=== PATIENT | male | born 1975 | race Caucasian/White ===

== ENCOUNTER 2018-03-14 16:26 | Emergency (ER) | payer BC ==
[~2018-03-14 16:26] MED LIST: ALP5 PO; AZIT-1 PO; BUPXL150 PO; CELE-1 PO; CODE118S5 PO; DIAZ-308 PO; HYDR-653 PO; IBU600; KET10 PO; LOR5 PO; LOR5/325 PO; NO ROUTINE MEDS; OMEP-218 PO; OSE75 PO; OXYC-865 PO; PAN40 PO; PER PO; PRE20 PO; QUET100T29 PO; TRAZ50 PO
--- NOTE | 2018-03-14 16:35 | ER Report ---
History and Physical Time Seen By MD: 16:35 Hx. of Stated Complaint: PATIENT REPORTS LEFT ARM PAIN FOR THE LAST 3 WEEKS. TODAY HE BECAME NAUSEATED AND DECIDED TO COME TO THE EMERGENCY DEPARTMENT FOR EVALUATION HPI/ROS CHIEF COMPLAINT: Left shoulder pain, numbness to left arm, coolness to left hand HISTORY OF PRESENT ILLNESS: 42-year-old male patient presents to emergency room with complaint of left shoulder pain, numbness left arm, coolness to the left hand. Patient states that he has been dealing with this for the past 2 months. Patient states she's noticed that when he is driving that his headache arm will falsely, he states he's noticed pains that shoot up the arm into the chest and also from the chest down the arm. He states this has become more more frequent. He states that there is mild time where he doesn't have discomfort in the left arm. He states he's also noticed that his left hand is cooler than his right. Patient has not taken any medication for this. He denies any injury to the arm. Patient states that oftentimes happen when his arm is raised, especially driving, but will also have other times. Patient states that he notices it when he sleeps. Patient has not seen a healthcare provider for this. REVIEW OF SYSTEMS: Respiratory: No cough, no dyspnea. Cardiovascular: No chest pain, no palpitations. Gastrointestinal: No vomiting, no abdominal pain. Musculoskeletal: As noted above Allergies: Coded Allergies: tramadol (Verified Allergy, Intermediate, RASH , 03/24/16) Penicillins (Verified Allergy, Mild, RASH HIVES, 01/30/17) amoxicillin (Verified Allergy, Mild, RASH, 08/29/14) Home Meds Discontinued Scripts Hydrocodone Bit/Acetaminophen (NORCO 5-325 TABLET) 1 Each Tablet, 1-2 EACH PO Q4H PRN for PAIN, #30 TAB Prov:FORTINO PINA MD 02/03/17 Ketorolac Tromethamine (KETOROLAC TROMETHAMINE) 10 Mg Tab, 10 MG PO Q6H, #20 TAB Prov:FORTINO PINA MD 02/03/17 Past Medical/Surgical History Patient has a past medical history of cranial surgery, cellulitis on his skull, ruptured ulcer, hernia repair, tib-fib fracture, broken jaw, alcohol use. Patient has surgical history of a tib-fib repair, surgery for his ruptured ulcer, surgery for cellulitis. Patient has a family medical history of cancer. Reviewed Nurses Notes: Yes Hx Smoking: No Smoking Status: Former Smoker Hx Substance Use Disorder: No Hx Alcohol Use: Yes Constitutional Vital Sign - Last 24 Hours 03/14/18 03/14/18 03/14/18 03/14/18 16:29 16:32 16:37 16:56 Temp 97.4 Pulse 71 66 Resp 20 B/P (MAP) 141/97 141/97 (112) 138/94 (109) Pulse Ox 95 93 03/14/18 03/14/18 03/14/18 03/14/18 17:26 17:56 18:01 18:06 Pulse 70 69 66 66 Pulse Ox 94 95 95 95 03/14/18 03/14/18 03/14/18 03/14/18 18:11 18:15 18:16 18:21 Pulse 67 60 59 B/P (MAP) 125/94 (104) Pulse Ox 97 96 93 03/14/18 03/14/18 03/14/18 03/14/18 18:36 18:51 18:56 19:12 Pulse 73 62 67 B/P (MAP) 127/89 (102) Pulse Ox 93 94 95 Physical Exam General Appearance: The patient is alert, has no immediate need for airway protection and no current signs of toxicity. Respiratory: Chest is non tender, lungs are clear to auscultation. Cardiac: regular rate and rhythm. Radial pulses are equal bilaterally, left hand does feel slightly cooler than the right. Gastrointestinal: Abdomen is soft and non tender, no masses, bowel sounds normal. Musculoskeletal: Neck: Neck is supple and non tender. Extremities have full range of motion and are non tender. Skin: No rashes or lesions. DIFFERENTIAL DIAGNOSIS: After history and physical exam differential diagnosis was considered for thoracic outlet syndrome, pinched nerve, DVT. Medical Decision Making Data Points Result Diagram: 03/14/18 1651 03/14/18 1651 Laboratory Hematology Test 03/14/18 16:51 Red Blood Count 5.53 M/uL (4.00-5.60) Mean Corpuscular Volume 89.9 fL (80.0-96.0) Mean Corpuscular Hemoglobin 31.5 pg (26.0-33.0) Mean Corpuscular Hemoglobin Concent 35.0 g/dL (32.0-36.0) Red Cell Distribution Width 12.8 % (11.5-14.5) Mean Platelet Volume 7.5 fL (7.2-11.1) Neutrophils (%) (Auto) 63.4 % (39.4-72.5) Lymphocytes (%) (Auto) 29.5 % (17.6-49.6) Monocytes (%) (Auto) 5.7 % (4.1-12.4) Eosinophils (%) (Auto) 1.0 % (0.4-6.7) Basophils (%) (Auto) 0.4 % (0.3-1.4) Nucleated RBC Relative Count (auto) 0.0 /100WBC Neutrophils # (Auto) 6.3 K/uL (2.0-7.4) Lymphocytes # (Auto) 2.9 K/uL (1.3-3.6) Monocytes # (Auto) 0.6 K/uL (0.3-1.0) Eosinophils # (Auto) 0.1 K/uL (0.0-0.5) Basophils # (Auto) 0.0 K/uL (0.0-0.1) Nucleated RBC Absolute Count (auto) 0.00 K/uL Sodium Level 139 mmol/L (137-145) Potassium Level 3.6 mmol/L (3.5-5.0) Chloride Level 104 mmol/L (98-107) Carbon Dioxide Level 25 mmol/L (22-30) Blood Urea Nitrogen 19 mg/dl (9-21) Creatinine 1.00 mg/dl (0.66-1.25) Glomerular Filtration Rate Calc > 60.0 Random Glucose 87 mg/dl (75-110) Calcium Level 9.4 mg/dl (8.4-10.2) Total Bilirubin 0.4 mg/dl (0.2-1.3) Aspartate Amino Transf (AST/SGOT) 42 U/L (0-35) Alanine Aminotransferase (ALT/SGPT) 72 U/L (0-56) Alkaline Phosphatase 76 U/L (0-126) Troponin I < 0.012 ng/ml Total Protein 7.3 g/dl (6.3-8.2) Albumin 4.4 g/dl (3.5-5.0) Chemistry Test 03/14/18 16:51 White Blood Count 9.9 k/uL (4.5-11.0) Red Blood Count 5.53 M/uL (4.00-5.60) Hemoglobin 17.4 g/dL (14.0-18.0) Hematocrit 49.7 % (42.0-52.0) Mean Corpuscular Volume 89.9 fL (80.0-96.0) Mean Corpuscular Hemoglobin 31.5 pg (26.0-33.0) Mean Corpuscular Hemoglobin Concent 35.0 g/dL (32.0-36.0) Red Cell Distribution Width 12.8 % (11.5-14.5) Platelet Count 236 K/uL (150-450) Mean Platelet Volume 7.5 fL (7.2-11.1) Neutrophils (%) (Auto) 63.4 % (39.4-72.5) Lymphocytes (%) (Auto) 29.5 % (17.6-49.6) Monocytes (%) (Auto) 5.7 % (4.1-12.4) Eosinophils (%) (Auto) 1.0 % (0.4-6.7) Basophils (%) (Auto) 0.4 % (0.3-1.4) Nucleated RBC Relative Count (auto) 0.0 /100WBC Neutrophils # (Auto) 6.3 K/uL (2.0-7.4) Lymphocytes # (Auto) 2.9 K/uL (1.3-3.6) Monocytes # (Auto) 0.6 K/uL (0.3-1.0) Eosinophils # (Auto) 0.1 K/uL (0.0-0.5) Basophils # (Auto) 0.0 K/uL (0.0-0.1) Nucleated RBC Absolute Count (auto) 0.00 K/uL Glomerular Filtration Rate Calc > 60.0 Calcium Level 9.4 mg/dl (8.4-10.2) Total Bilirubin 0.4 mg/dl (0.2-1.3) Aspartate Amino Transf (AST/SGOT) 42 U/L (0-35) Alanine Aminotransferase (ALT/SGPT) 72 U/L (0-56) Alkaline Phosphatase 76 U/L (0-126) Troponin I < 0.012 ng/ml Total Protein 7.3 g/dl (6.3-8.2) Albumin 4.4 g/dl (3.5-5.0) EKG/Imaging EKG Interpretation 12 lead EKG: Rhythm: normal sinus rhythm with a ventricular rate of 71 bpm [place]: normal QRS: normal ST segments: normal Imaging ARTERIAL UPPER EXT LEFT HISTORY: numbness tingling, cool hand Left arterial study. The left arm was interrogated with the following parameters obtained Left subclavian artery peak systolic velocity 139 cm/s/triphasic waveform Axillary artery 81.8 cm/s peak systolic velocity/triphasic waveform Brachial artery proximal 85.2 cm/s/triphasic waveform Brachial artery mid aspect a 81.6 cm/s/triphasic waveform Brachial artery distal 94.3 cm/s/triphasic waveform Radial artery proximal 52.7 cm/s/triphasic waveform Radial artery distal 38.6 cm/s. Triphasic waveform Ulnar artery proximal 45.8 cm/s/triphasic waveform Ulnar artery distal 54.3 cm/s/triphasic waveform IMPRESSION: 1. Normal-appearing arterial study of the left arm ultrasound with no vascular inflow abnormalities noted. Report Dictated By: Kevin Stewart MD at 03/14/2018 6:33 PM Report E-Signed By: Kevin Stewart MD at 03/14/2018 7:09 PM EXAMINATION: Cervical spine radiographs HISTORY: Pain COMPARISON: None. FINDINGS: Lateral, bilateral oblique, frontal and odontoid views obtained. Vertebral body and disc space heights are normal. No fracture or prevertebral soft tissue swelling. Narrowing of a a few right-sided foramen most pronounced at C4-5 where there is mild to moderate foraminal narrowing seen on oblique view. No apparent left foraminal narrowing seen on oblique view. The visible upper lungs are clear. Plate and screws noted along the left mandible. Screw noted in the right mandibular ramus region. IMPRESSION: 1. No apparent acute finding. 2. Narrowing of a few right foramen most pronounced at C4-5 where there is mild to moderate foraminal narrowing. Report Dictated By: Chuy Aguero MD at 03/14/2018 5:33 PM Report E-Signed By: Chuy Aguero MD at 03/14/2018 5:36 PM CHEST PA AND LAT INDICATION: Left shoulder pain COMPARISON: August 29, 2014 FINDINGS: Frontal and lateral views obtained. The cardiac silhouette is normal in size. No pneumothorax. The lungs are clear. Normal osseous structures. No pleural fluid. IMPRESSION: Normal chest radiographs. Report Dictated By: Chuy Aguero MD at 03/14/2018 5:36 PM Report E-Signed By: Chuy Aguero MD at 03/14/2018 5:37 PM VENOUS DOPP UPPER LEFT EXTREMI HISTORY: numbness tingling, cool hand ADDITIONAL HISTORY: None. COMPARISON: None. FINDINGS: Grayscale compression, duplex and color Doppler interrogation of the left upper extremity veins was performed. Jugular vein - Negative. Subclavian vein - Negative. Axillary vein - Negative. Basilic vein - Negative. Cephalic vein - Negative. Brachial veins - Negative. IMPRESSION: Negative left arm for DVT. Report Dictated By: Kevin Stewart MD at 03/14/2018 6:29 PM Report E-Signed By: Kevin Stewart MD at 03/14/2018 6:33 PM EXAMINATION: Left shoulder radiographs 2 views HISTORY: Pain COMPARISON: None. FINDINGS: Frontal and scapula Y views obtained. Bones: Normal. Joint spaces: Mild acromioclavicular joint space degeneration. Alignment: Normal. Soft tissues / visualized lungs: Normal. IMPRESSION: No fracture or malalignment. Mild acromioclavicular joint space degeneration. Report Dictated By: Chuy Aguero MD at 03/14/2018 5:37 PM Report E-Signed By: Chuy Aguero MD at 03/14/2018 5:38 PM ED Course/Re-evaluation ED Course Patient was admitted to an exam room, history and physical for pain. Differenti al diagnoses were considered. On examination lungs were clear, heart is regular, abdomen soft nontender. Patient had no obvious tenderness to palpation to the left shoulder, left arm. A CBC, CMP, troponin, EKG, chest x-ray, cervical x-ray: Left shoulder x-ray were done. Lab results were unremarkable, shoulder images and make images were negative. Ultrasound of the venous and arterial outflows the left arm were done. Those were also negative. I discussed findings with patient and his . We'll go ahead and discharge him home at this time. Lichen go ahead and follow-up with his primary care provider for further evaluation and plan for treatment for thoracic outlet syndrome. Patient and his verbalized understanding and agreement with plan. Decision to Disposition Date: Mar 14, 2018 Decision to Disposition Time: 19:07 Depart Departure Latest Vital Signs Vital Signs Date Time Temp Pulse Resp B/P (MAP) Pulse Ox O2 Delivery O2 Flow Rate FiO2 03/14/18 19:12 127/89 (102) 03/14/18 18:56 67 95 03/14/18 16:29 97.4 20 Impression: Primary Impression: Thoracic outlet syndrome Condition: Improved Disposition: HOME OR SELF-CARE Referrals: PADMA VILLAGOMEZ DO (PCP) Patient Instructions: Thoracic Outlet Syndrome (ED) Additional Instructions: Follow up with your primary care provider in the next week to discuss next steps. Limit activity by pain. Continue with normal diet and activity. Return to the ER if condition worsens. DIANA KIMBLE Mar 14, 2018 16:35
--- NOTE | 2018-03-14 16:57 | EKG ---
FACILITY: [facility] - [place] PATIENT NAME: ROX LANDA : [id number] MR: [id number] V: [id number] EXAM DATE: ORDERING PHYSICIAN: DIANA KIMBLE TECHNOLOGIST: Test Reason : Chest pain Blood Pressure : / mmHG Vent. Rate : 071 BPM Atrial Rate : 071 BPM P-R Int : 170 ms QRS Dur : 078 ms QT Int : 370 ms P-R-T Axes : 048 007 050 degrees QTc Int : 402 ms Normal sinus rhythm Normal ECG No previous ECGs available Confirmed by VILMA KAM ([id number]) on 03/14/2018 8:40:08 PM Referred By: Confirmed By:VILMA KAM
[2018-03-14 17:00] LABS: PLATELET COUNT, AUTOMATED 236 K/uL (150-450)
--- NOTE | 2018-03-14 17:40 | RADIOLOGY IMAGING REPORT ---
FACILITY: [facility] PATIENT NAME: Duncan Olvera : 1975 MR: [id number] V: [id number] EXAM DATE: ORDERING PHYSICIAN: DIANA KIMBLE TECHNOLOGIST: Location: [facility] Patient: Duncan Olvera : 1975 Visit/Account:[id number] Date of Sevice: 03/14/2018 CHEST PA AND LAT INDICATION: Left shoulder pain COMPARISON: August 29, 2014 FINDINGS: Frontal and lateral views obtained. The cardiac silhouette is normal in size. No pneumoth orax. The lungs are clear. Normal osseous structures. No pleural fluid. IMPRESSION: Normal chest radiographs. Report Dictated By: Chuy Aguero MD at 03/14/2018 5:36 PM Report E-Signed By: Chuy Aguero MD at 03/14/2018 5:37 PM WSN:[id number]
--- NOTE | 2018-03-14 17:41 | RADIOLOGY IMAGING REPORT ---
FACILITY: [facility] PATIENT NAME: Duncan Olvera : 1975 MR: [id number] V: [id number] EXAM DATE: ORDERING PHYSICIAN: DIANA KIMBLE TECHNOLOGIST: Location: [facility] [place] Patient: Duncan Olvera : 1975 Visit/Account:[id number] Date of Sevice: 03/14/2018 EXAMINATION: Left shoulder radiographs 2 views HISTORY: Pain COMPARISON: None. FINDINGS: Frontal and scapula Y views obtained. Bones: Normal. Joint spaces: Mild acromioclavicular joint space degeneration. Alignment: Normal. Soft tissues / visualized lungs: Normal. IMPRESSION: No fracture or malalignment. Mild acromioclavicular joint space degeneration. Report Dictated By: hCuy Aguero MD at 03/14/2018 5:37 PM Report E-Signed By: Chuy Aguero MD at 03/14/2018 5:38 PM WSN:[id number]
--- NOTE | 2018-03-14 17:41 | RADIOLOGY IMAGING REPORT ---
[place] [facility] [place]IENT NAME: Duncan Olvera : 1975 MR: [id number] V: [id number] EXAM DATE: ORDERING PHYSICIAN: DIANA KIMBLE TECHNOLOGIST: Location: [facility] Patient: Duncan Olvera : 1975 Visit/Account:[id number] Date of Sevice: 03/14/2018 EXAMINATION: Cervical spine radiographs HISTORY: Pain COMPARISON: None. FINDINGS: Lateral, bilateral oblique, frontal and odontoid views obtained. Vertebral body and disc space heights are normal. No fracture or prevertebral soft tissue swelling. N arrowing of a a few right-sided foramen most pronounced at C4-5 where there is mild to moderate fredi inal narrowing seen on oblique view. No apparent left foraminal narrowing seen on oblique view. The v isible upper lungs are clear. Plate and screws noted along the left mandible. Screw noted in the righ t mandibular ramus region. IMPRESSION: 1. No apparent acute finding. 2. Narrowing of a few right foramen most pronounced at C4-5 where there is mild to moderate foraminal narrowing. Report Dictated By: Chuy Aguero MD at 03/14/2018 5:33 PM Report E-Signed By: Chuy Aguero MD at 03/14/2018 5:36 PM WSN:[id number]
--- NOTE | 2018-03-14 18:36 | RADIOLOGY IMAGING REPORT ---
FACILITY: [facility] - [place] PATIENT NAME: Duncan Olvera : 1975 MR: [id number] V: [id number] EXAM DATE: ORDERING PHYSICIAN: DIANA KIMBLE TECHNOLOGIST: Location: [facility] Patient: Duncan Olvera : 1975 Visit/Account:[id number] Date of Sevice: 03/14/2018 VENOUS DOPP UPPER LEFT EXTREMI HISTORY: numbness tingling, cool hand ADDITIONAL HISTORY: None. COMPARISON: None. FINDINGS: Grayscale compression, duplex and color Doppler interrogation of the left upper extremity veins was p erformed. Jugular vein - Negative. Subclavian vein - Negative. Axillary vein - Negative. Basilic vein - Negative. Cephalic vein - Negative. Brachial veins - Negative. IMPRESSION: Negative left arm for DVT. Report Dictated By: Kevin Stewart MD at 03/14/2018 6:29 PM Report E-Signed By: Kevin Stewart MD at 03/14/2018 6:33 PM WSN:[email or web address]
[2018-03-14 19:12] VITALS: BP 127/89
--- NOTE | 2018-03-14 19:14 | RADIOLOGY IMAGING REPORT ---
FACILITY: [facility] PATIENT NAME: Duncan Olvera : 1975 MR: [id number] V: [id number] EXAM DATE: ORDERING PHYSICIAN: DIANA KIMBLE TECHNOLOGIST: Location: [facility] [place] Patient: Duncan Olvera : 1975 Visit/Account:[id number] Date of Sevice: 03/14/2018 ARTERIAL UPPER EXT LEFT HISTORY: numbness tingling, cool hand Left arterial study. The left arm was interrogated with the following parameters obtained Left subclavian artery peak systolic velocity 139 cm/s/triphasic waveform Axillary artery 81.8 cm/s peak systolic velocity/triphasic waveform Brachial artery proximal 85.2 cm/s/triphasic waveform Brachial artery mid aspect a 81.6 cm/s/triphasic waveform Brachial artery distal 94.3 cm/s/triphasic waveform Radial artery proximal 52.7 cm/s/triphasic waveform Radial artery distal 38.6 cm/s. Triphasic waveform Ulnar artery proximal 45.8 cm/s/triphasic waveform Ulnar artery distal 54.3 cm/s/triphasic waveform IMPRESSION: 1. Normal-appearing arterial study of the left arm ultrasound with no vascular inflow abnormalities noted. Report Dictated By: Kevin Stewart MD at 03/14/2018 6:33 PM Report E-Signed By: Kevin Stewart MD at 03/14/2018 7:09 PM WSN:[email or web address]
== END 2018-03-14 19:20 | disposition home or self-care (01) ==
LOC: ER 16:40
DX: G54.0 Brachial plexus disorders (principal)
CPT/HCPCS: 71046; 72050; 82040; 82247; 82310; 82374; 82435; 82565; 82947; 84075; 84132; 84155; 84295; 84450; 84460; 84484; 84520; 85025; 93005; 99284

== ENCOUNTER 2018-05-26 07:36 | Emergency (ER) | payer BC ==
[2018-05-26] MEDS ORDERED: NS(*) 0.9% 1000 ML BAG 1,000 ML IV ONE (07:50)
[2018-05-26] MEDS ORDERED: EPINEPHrine 0.3 MG SYR IM ONLY ONE ×2 (07:50→09:05)
[2018-05-26] MEDS ORDERED: diphenhydrAMINE 50 MG/ML VIAL IVP ONE (07:50)
[2018-05-26] MEDS ORDERED: methylPREDNIS SUCC 125 MG/2ML IVP ONE (07:50)
--- NOTE | 2018-05-26 07:55 | ER Report ---
History and Physical Time Seen By MD: 07:50 Hx. of Stated Complaint: GENERALIZED BODY RASH HPI/ROS CHIEF COMPLAINT: Allergic reaction HISTORY OF PRESENT ILLNESS: Patient is an otherwise healthy 42-year-old male who comes emergency Department today with a complaint of a systemic rash. Patient was taking seen by his psychiatric physician who began Lamictal approximate 7 days prior to presentation about 3-4 days after initial ingestion noticed a rash systemically no airway compromise no difficulty in breathing no cough no fever chills or sweats. Patient states last couple days he's been some continuing the medication in his rashes be getting significantly worse. Patient went side is . 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 Arrival here he is having no airway compromises I he's having no open wounds or rashes other than a systemic rash clearly related to the ingestion of the medication. Patient denies any chest pain shortness of breath or additional complaints noted REVIEW OF SYSTEMS: Respiratory: No cough, no dyspnea. Cardiovascular: No chest pain, no palpitations. Gastrointestinal: No vomiting, no abdominal pain. Musculoskeletal: No back pain. Remainder of the 14 system rev: Yes Allergies: Coded Allergies: tramadol (Verified Allergy, Intermediate, RASH , 03/24/16) Penicillins (Verified Allergy, Mild, RASH HIVES, 01/30/17) amoxicillin (Verified Allergy, Mild, RASH, 08/29/14) lamotrigine (Verified Allergy, Unknown, 05/26/18) Home Meds No Active Prescriptions or Reported Meds Reviewed Nurses Notes: Yes Old Medical Records Reviewed: Yes Hx Smoking: No Smoking Status: Former Smoker Hx Substance Use Disorder: No Hx Alcohol Use: Yes Constitutional Vital Sign - Last 24 Hours 05/26/18 05/26/18 05/26/18 05/26/18 07:39 08:00 08:30 09:09 Temp 98.3 Pulse 92 81 79 Resp 20 B/P (MAP) 135/109 106/78 (87) 124/86 (99) 115/73 (87) Pulse Ox 92 94 94 O2 Delivery Room Air 05/26/18 09:30 Pulse 81 B/P (MAP) 98/50 (66) Pulse Ox 93 Physical Exam General Appearance: [The patient is alert, has no immediate need for airway protection and no current signs of toxicity.] [ ] Eyes: Pupils equal and round no injection. Respiratory: Chest is non tender, lungs are clear to auscultation. Cardiac: regular rate and rhythm [ ] Gastrointestinal: Abdomen is soft and non tender, no masses, bowel sounds normal. Musculoskeletal: Neck: Neck is supple and non tender. Extremities have full range of motion and are non tender. Skin: Patient has a systemic rash with some focal areas of localization in the anterior posterior chest and back wall. Patient has no airway issues no oral mucosal involvement no optic or around the eye area involvement patient is moving air with no issues of the rash is pruritic non-macular non-papular with blanching [ ] DIFFERENTIAL DIAGNOSIS: After history and physical exam differential diagnosis was considered for acute allergic reaction Medical Decision Making ED Course/Re-evaluation ED Course ED clinical course medical decision making patient with an acute allergic reaction most likely to his Lamictal patient was given multiple rounds of medication he had some improvement we'll start him on by mouth prednisone at home with H1 and H2 blockers was seen at bedside by hospitalist determined with our pharmacy to be safe and stable return if symptoms worsen diagnosis will be acute allergic reaction Decision to Disposition Date: May 26, 2018 Decision to Disposition Time: 10:47 Depart Departure Latest Vital Signs Vital Signs Date Time Temp Pulse Resp B/P (MAP) Pulse Ox O2 Delivery O2 Flow Rate FiO2 05/26/18 09:30 81 98/50 (66) 93 05/26/18 07:39 98.3 20 Room Air Impression: Primary Impression: Allergic reaction Condition: Improved Disposition: HOME OR SELF-CARE Referrals: PADMA VILLAGOMEZ DO (PCP) 5 Days New Scripts Diphenhydramine Hcl (BENADRYL) 25 Mg Capsule 25 MG PO Q6-8H for 7 Days, #30 CAPSULE Prov: MAMADOU MARQUIS MD 05/26/18 Famotidine (PEPCID) 20 Mg Tablet 20 MG PO QDAY, #10 TAB Prov: MAMADOU MARQUIS MD 05/26/18 Prednisone (PREDNISONE) 20 Mg Tablet 60 MG PO QDAY, #5 0 Refills Prov: MAMADOU MARQUIS MD 05/26/18 Patient Instructions: General Allergic Reaction (ED) MAMADOU MARQUIS MD May 26, 2018 07:54
[2018-05-26 10:40] VITALS: BP 101/63
[2018-05-26] MEDS ORDERED: DIPH-740 PO (10:46)
[2018-05-26] MEDS ORDERED: PRED20TA6 PO (10:46)
[2018-05-26] MEDS ORDERED: FAMO20TA28 PO (10:46)
--- NOTE | 2018-05-26 11:47 | Hospitalist Consultation ---
History of Present Illness Requesting Physician Mickey Reason for Consult Drug rash History of Present Illness 42yo male with behavioral disorder who came to the ER for a rash. He was started on Lamictal about a week ago. He takes no other OTC, supplements, or prescription medications. Yesterday, he noted a that his scalp was itchy at about 2pm. He went home and showered and noted a rash across his chest/back. His last dose of Lamictal was 2 nights ago. Today, the rash had progressed to involve his legs and arms. It also appears more intensely red. He itches all over. He denies mouth sores, throat swelling sensation. He did have puffiness around his eyes this morning. No reported nausea, vomiting or lightheadedness. Benadryl and Atrax haven't helped. He was told to go to the ER by his provider. In the ER, he received methylprednisolone, Benadryl, epinephrine x2 and IVF. He has noted no improvement in the rash. History Problems: (1) Behavioral disorder Home Meds Active Scripts Diphenhydramine Hcl (BENADRYL) 25 Mg Capsule, 25 MG PO Q6-8H for 7 Days, #30 CAPSULE Prov:MAMADOU MARQUIS MD 05/26/18 Famotidine (PEPCID) 20 Mg Tablet, 20 MG PO QDAY, #10 TAB Prov:MAMADOU MARQUIS MD 05/26/18 Prednisone (PREDNISONE) 20 Mg Tablet, 60 MG PO QDAY, #5 0 Refills Prov:MAMADOU MARQUIS MD 05/26/18 Allergies: Coded Allergies: tramadol (Verified Allergy, Intermediate, RASH , 03/24/16) Penicillins (Verified Allergy, Mild, RASH HIVES, 01/30/17) amoxicillin (Verified Allergy, Mild, RASH, 08/29/14) lamotrigine (Verified Allergy, Unknown, 05/26/18) Other Social/Family Hx No tobacco use. Rare alcohol. Hx Smoking: No Smoking Status: Former Smoker Caffeine Intake: Coffee Caffeine/Cups Per Day: 2-3 CPD Hx Alcohol Use: Yes Hx Substance Use Disorder: No Social Drug Use: Never Review of Systems All Systems Reviewed/Normal: Yes, Except as Noted Exam Vital Signs Vital Signs Date Time Temp Pulse Resp B/P (MAP) Pulse Ox O2 Delivery O2 Flow Rate FiO2 05/26/18 10:40 74 101/63 (76) 92 Room Air 05/26/18 07:39 98.3 20 General Appearance: Alert, Awake, No Acute Distress Neuro: No Gross deficits Eyes: Other (No scleral changes. Lids are not swollen or erythematous) ENT: Moist Mucous Membranes, Oropharynx Clear, Posterior Pharynx Clear, Other (No lip lesions) Integumentary: Other (Diffuse macular/papular erythematous rash with lesions about 2-3mm over head/scalp/chest/back/upper legs/upper arms. No blistering) Assessment and Plan Problems: (1) Allergic reaction Status: Acute Assessment & Plan: He presented with less than 24 hours of a pruritic, erythematous, macular-papular rash over his head/scalp/back/abdomen/upper legs/upper arms that is worsening despite steroids and antihistamine treatment. He was started on Lamictal a week ago and his last dose was 2 nights ago. There is no mucus membrane involvement and there is no blistering. He has no signs or symptoms of anaphylaxis. He was given reassurance, but offered admission for observation. He would rather watch the rash at home. He should take a Solumedrol dose pack, Zyrtec in the morning and Benadryl before bed and a H2 estefanía until the rash improves. He was told to return to the ER for nausea, abdominal pain, light headedness, blistering of the rash or mucus involvement. He and his significant other expressed understanding. Dr. Marquis is in agreement with the plan. Copies to: MAMADOU MARQUIS MD; PADMA VILLAGOMEZ DO; KELLY [employer] ANALYST [employer] ANALYST ; Venous Thromboembolism Antithrombotics Is Pt On Any Antithrombotics?: No Exam Sepsis Risk: No Definite Risk RADHA JUNIOR MD May 26, 2018 11:47
== END 2018-05-26 10:44 | disposition home or self-care (01) ==
LOC: ER 07:41 → CANBEDREQ 09:22 → ER 10:44
DX: T78.40XA Allergy, unspecified, initial encounter (principal)
CPT/HCPCS: 96361; 96372; 96374; 96375; 99284; J0171; J1200; J2930; J7030